=== PATIENT | female | born 1975 | race Caucasian/White ===

== ENCOUNTER 2016-09-28 07:59 | Emergency (ER) | payer OTHER ==
--- NOTE | 2016-09-28 09:17 | ED NURSING NOTES ---
Clinical Report - Nurses [facility] [address] [place] [address] 09/28/2016 8:01 Patient: MACIEJ BARNES TRIAGE Triage time 08:12 Sep 28 2016. Acuity: LEVEL 4. Chief Complaint: LEFT UPPER EXTREMITY PAIN. Alert. No acute distress. LEANNE COMA SCORE: Leanne Coma Scale: 15- eyes open spontaneously (4); best verbal response- oriented x 4 (5); best motor response- obeys commands (6). --08:19 Tammy Hernandez R.N. 08:12 09/28/16. BP: 116/62. HR: 65. RR: 18. O2 saturation: 99%. Temp: 98.2 F. Pain level now 0/10. --08:19 Tammy Hernandez R.N. Weight: 81.6 kg stated. Height/Length: 67 inches Per Patient. BMI: 28.2. --08:12 Tammy Hernandez R.N. Medications None. --08:13 Tammy Hernandez R.N. Medication/allergy information source: the patient. --08:19 Tammy Hernandez R.N. Allergies Ibuprofen. (sesative to it, sometimes face swells) --08:13 Tammy Hernandez R.N. The following entry was struck and corrected by Tammy Hernandez R.N., 08:14 (09/28/16) Reason for correction - other(correction). <<STRICKEN ENTRY-- Ibuprofen. --08:13 Tammy Hernandez R.N. --END STRIKE>>. History Arrived by private vehicle. Historian: patient. Accompanied by family. Primary physician (none). ( Chronic Left Shoulder pain - 4-5 months. Has seen Walk In in the past and was told Tendonitis.). An injury may have occurred. This occurred (recurrent problem). Treatment SHIPYARD PAINTER: None. PAST MEDICAL HX: Tetanus status: unknown. Has not received seasonal influenza immunization. SURGERY HX: ( Gastric Sleeve by Dr. Cintia Goode). SOCIAL HX: Never smoker. Occasional alcohol use. No drug use. No infectious disease exposure. FALL RISK ASSESSMENT: Fall risk assessment completed. No fall risk identified. NUTRITIONAL RISK ASSESSMENT: The nutritional risk assessment revealed no deficiencies. FUNCTIONAL ASSESSMENT: Functional assessment: no impairments noted. LEARNING NEEDS ASSESSMENT: The learning needs assessment revealed no barriers. SKIN INTEGRITY ASSESSMENT: Skin integrity risk assessment completed. No skin integrity risk identified. --08:19 Tammy Hernandez R.N. PROBLEMS: Neuropathy. Immunizations. LNMP - Last Normal Menstrual Period. Hypercholesterolemia. --08:13 Tammy Hernandez R.N. Interventions ID band on patient. To room. --08:19 Tammy Hernandez R.N. PHYSICAL ASSESSMENT 09:30 FIRST CONTACT WITH PT. --09:37 Umm Saavedra R.N. 09:30. GENERAL / NEURO / PSYCH: Oriented X 4. Alert. Appears in no acute distress. SKIN: Skin is warm and dry. --09:37 Umm Saavedra R.N. NURSING PROGRESS NOTES Patient ready for evaluation- ED physician notified. --08:19 Tammy Hernandez R.N. 09:30. The patient is calm. Overall patient status is the same- she states feels the same (pt refused the sling). GENERAL / NEURO / PSYCH: Alert. Oriented X 4. RESPIRATORY: No respiratory distress. SKIN: Skin is warm and dry. --09:36 Umm Saavedra R.N. DISPOSITION / DISCHARGE Departure time: 929. Condition at departure: unchanged and stable. No learning barriers present. Discharge instructions provided and reviewed with the patient. Reviewed medication(s). Prescription(s) given to the patient. Patient verbalized understanding. Written instructions provided in Cape Verdean. The patient was discharged home and accompanied by apron cleaner. She left the Emergency Department ambulatory and via private vehicle. FALL RISK ASSESSMENT: Fall risk assessment completed. No fall risk identified. --09:38 Umm Saavedra R.N. 09:30 09/28/16. BP: 118/60. HR: 72. RR: 18. O2 saturation: 100% on room air. Pain level now: 11/30. --09:38 Umm Saavedra R.N. Locked/Released at 09/28/2016 9:39 by Umm Saavedra R.N.
--- NOTE | 2016-09-28 09:17 | ED CLINICAL REPORT ---
Clinical Report - Physicians/Mid Levels [facility] [address] [place] [address] 09/28/2016 8:01 [id number] Time Seen: 08:37 Sep 28 2016. Arrived- By private vehicle. Historian- patient. CPT: ER phys charges level 3 (#883241). HISTORY OF PRESENT ILLNESS Chief Complaint: Injury to left shoulder. 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 ( no known injury. Progressively worse recently to the point of not being able to sleep. Guarding arm due to finger injury started to cause shoulder pain.). Patient is experiencing moderate pain. No other injury. REVIEW OF SYSTEMS No swelling, tingling, numbness, weakness or suspected foreign body. No skin laceration. All systems otherwise negative, except as recorded above. PAST HISTORY Fractured left small finger with several weeks of splinting. Neuropathy. Immunizations. LNMP - Last Normal Menstrual Period. Hypercholesterolemia. Medications: None. Allergies: Ibuprofen. (sesative to it, sometimes face swells). SOCIAL HISTORY Never smoker. Occasional alcohol use. No drug use. ADDITIONAL NOTES The nursing notes have been reviewed. PHYSICAL EXAM Vital Signs: 09/28/2016 08:12 BP: 116/62. HR: 65. RR: 18. O2 saturation: 99%. Temp: 98.2 F. Head: Head atraumatic. Eyes: Pupils equal, round and reactive to light. Eyes normal inspection. ENT: Ears normal. Pharynx normal. Neck: Normal inspection. Neck supple. C-spine non-tender. CVS: Normal heart rate and rhythm. Respiratory: No respiratory distress. Abdomen: Nontender. Back: Normal inspection. No tenderness. Skin: Skin intact. Skin warm. Normal skin color. Extremities: Moderate soft-tissue tenderness present over the left scapula. Left shoulder. Limited ROM due to pain (diminished extension and internal rotation). Neurovascular intact distally. Neuro, Vascular and Tendons: Sensation intact. Motor intact. Vascular status intact. Tendon function intact. Tendon visualized, uninjured. Neuro: Oriented X 3. No motor deficit. No sensory deficit. LABS, X-RAYS, AND EKG X-Rays: Left shoulder negative. PROGRESS AND PROCEDURES Patient/family counseled. Disposition: Discharged. Condition: stable. CLINICAL IMPRESSION Chronic pain left shoulder girdle. INSTRUCTIONS Apply moist heat for 15-20 minutes three times a day for five days until better. Limit use of your left hand until better. Warnings: GENERAL WARNINGS: Return or contact your physician immediately if your condition worsens or changes unexpectedly, if not improving as expected, or if other problems arise. Prescription Medications: Hydrocodone/APAP 5mg/325mg: take 1 to 2 orally every 6 hours as needed for pain. Dispense fifteen (15). No refills. Naproxen 500 mg tablets: take 1 orally every 12 hours as needed for pain. Dispense twenty (20). No refills. Soma 350 mg: Take 1 orally every 6 hours as needed for muscle spasm. Dispense twenty (20). No refills. Substitution is permissible. Follow-up: Follow up with an orthopedic surgeon in one week. Call for an appointment. Understanding of the discharge instructions verbalized by patient and family. Discharge instructions reviewed with and understanding was verbalized by spouse. [facility] [address] [facility] [address] Follow up in one week. Call for an appointment. (Electronically signed by Freddy Mendez MD 10/01/2016 12:33)
--- NOTE | 2016-09-28 09:17 | ED NURSING NOTES ---
Clinical Report - Nurses [facility] [address] [place] [address] 09/28/2016 8:01 Patient: MACIEJ BARNES TRIAGE Triage time 08:12 Sep 28 2016. Acuity: LEVEL 4. Chief Complaint: LEFT UPPER EXTREMITY PAIN. Alert. No acute distress. LEANNE COMA SCORE: Leanne Coma Scale: 15- eyes open spontaneously (4); best verbal response- oriented x 4 (5); best motor response- obeys commands (6). --08:19 Tammy Hernandez R.N. 08:12 09/28/16. BP: 116/62. HR: 65. RR: 18. O2 saturation: 99%. Temp: 98.2 F. Pain level now 0/10. --08:19 Tammy Hernandez R.N. Weight: 81.6 kg stated. Height/Length: 67 inches Per Patient. BMI: 28.2. --08:12 Tammy Hernandez R.N. Medications None. --08:13 Tammy Hernandez R.N. Medication/allergy information source: the patient. --08:19 Tammy Hernandez R.N. Allergies Ibuprofen. (sesative to it, sometimes face swells) --08:13 Tammy Hernandez R.N. The following entry was struck and corrected by Tammy Hernandez R.N., 08:14 (09/28/16) Reason for correction - other(correction). <<STRICKEN ENTRY-- Ibuprofen. --08:13 Tammy Hernandez R.N. --END STRIKE>>. History Arrived by private vehicle. Historian: patient. Accompanied by family. Primary physician (none). ( Chronic Left Shoulder pain - 4-5 months. Has seen Walk In in the past and was told Tendonitis.). An injury may have occurred. This occurred (recurrent problem). Treatment PROSTHETIC AIDE: None. PAST MEDICAL HX: Tetanus status: unknown. Has not received seasonal influenza immunization. SURGERY HX: ( Gastric Sleeve by Dr. Cintia Goode). SOCIAL HX: Never smoker. Occasional alcohol use. No drug use. No infectious disease exposure. FALL RISK ASSESSMENT: Fall risk assessment completed. No fall risk identified. NUTRITIONAL RISK ASSESSMENT: The nutritional risk assessment revealed no deficiencies. FUNCTIONAL ASSESSMENT: Functional assessment: no impairments noted. LEARNING NEEDS ASSESSMENT: The learning needs assessment revealed no barriers. SKIN INTEGRITY ASSESSMENT: Skin integrity risk assessment completed. No skin integrity risk identified. --08:19 Tammy Hernandez R.N. PROBLEMS: Neuropathy. Immunizations. LNMP - Last Normal Menstrual Period. Hypercholesterolemia. --08:13 Tammy Hernandez R.N. Interventions ID band on patient. To room. --08:19 Tammy Hernandez R.N. PHYSICAL ASSESSMENT 09:30 FIRST CONTACT WITH PT. --09:37 Umm Saavedra R.N. 09:30. GENERAL / NEURO / PSYCH: Oriented X 4. Alert. Appears in no acute distress. SKIN: Skin is warm and dry. --09:37 Umm Saavedra R.N. NURSING PROGRESS NOTES Patient ready for evaluation- ED physician notified. --08:19 Tammy Hernandez R.N. 09:30. The patient is calm. Overall patient status is the same- she states feels the same (pt refused the sling). GENERAL / NEURO / PSYCH: Alert. Oriented X 4. RESPIRATORY: No respiratory distress. SKIN: Skin is warm and dry. --09:36 Umm Saavedra R.N. DISPOSITION / DISCHARGE Departure time: 929. Condition at departure: unchanged and stable. No learning barriers present. Discharge instructions provided and reviewed with the patient. Reviewed medication(s). Prescription(s) given to the patient. Patient verbalized understanding. Written instructions provided in Martiniquais. The patient was discharged home and accompanied by restoration technician. She left the Emergency Department ambulatory and via private vehicle. FALL RISK ASSESSMENT: Fall risk assessment completed. No fall risk identified. --09:38 Umm Saavedra R.N. 09:30 09/28/16. BP: 118/60. HR: 72. RR: 18. O2 saturation: 100% on room air. Pain level now: 11/30. --09:38 Umm Saavedra R.N. Locked/Released at 09/28/2016 9:39 by Umm Saavedra R.N.
--- NOTE | 2016-09-28 09:17 | ED CLINICAL REPORT ---
Clinical Report - Physicians/Mid Levels [facility] [address] [place] [address] 09/28/2016 8:01 [id number] Time Seen: 08:37 Sep 28 2016. Arrived- By private vehicle. Historian- patient. CPT: ER phys charges level 3 (#[id number]). HISTORY OF PRESENT ILLNESS Chief Complaint: Injury to left shoulder. 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 ( no known injury. Progressively worse recently to the point of not being able to sleep. Guarding arm due to finger injury started to cause shoulder pain.). Patient is experiencing moderate pain. No other injury. REVIEW OF SYSTEMS No swelling, tingling, numbness, weakness or suspected foreign body. No skin laceration. All systems otherwise negative, except as recorded above. PAST HISTORY Fractured left small finger with several weeks of splinting. Neuropathy. Immunizations. LNMP - Last Normal Menstrual Period. Hypercholesterolemia. Medications: None. Allergies: Ibuprofen. (sesative to it, sometimes face swells). SOCIAL HISTORY Never smoker. Occasional alcohol use. No drug use. ADDITIONAL NOTES The nursing notes have been reviewed. PHYSICAL EXAM Vital Signs: 09/28/2016 08:12 BP: 116/62. HR: 65. RR: 18. O2 saturation: 99%. Temp: 98.2 F. Head: Head atraumatic. Eyes: Pupils equal, round and reactive to light. Eyes normal inspection. ENT: Ears normal. Pharynx normal. Neck: Normal inspection. Neck supple. C-spine non-tender. CVS: Normal heart rate and rhythm. Respiratory: No respiratory distress. Abdomen: Nontender. Back: Normal inspection. No tenderness. Skin: Skin intact. Skin warm. Normal skin color. Extremities: Moderate soft-tissue tenderness present over the left scapula. Left shoulder. Limited ROM due to pain (diminished extension and internal rotation). Neurovascular intact distally. Neuro, Vascular and Tendons: Sensation intact. Motor intact. Vascular status intact. Tendon function intact. Tendon visualized, uninjured. Neuro: Oriented X 3. No motor deficit. No sensory deficit. LABS, X-RAYS, AND EKG X-Rays: Left shoulder negative. PROGRESS AND PROCEDURES Patient/family counseled. Disposition: Discharged. Condition: stable. CLINICAL IMPRESSION Chronic pain left shoulder girdle. INSTRUCTIONS Apply moist heat for 15-20 minutes three times a day for five days until better. Limit use of your left hand until better. Warnings: GENERAL WARNINGS: Return or contact your physician immediately if your condition worsens or changes unexpectedly, if not improving as expected, or if other problems arise. Prescription Medications: Hydrocodone/APAP 5mg/325mg: take 1 to 2 orally every 6 hours as needed for pain. Dispense fifteen (15). No refills. Naproxen 500 mg tablets: take 1 orally every 12 hours as needed for pain. Dispense twenty (20). No refills. Soma 350 mg: Take 1 orally every 6 hours as needed for muscle spasm. Dispense twenty (20). No refills. Substitution is permissible. Follow-up: Follow up with an orthopedic surgeon in one week. Call for an appointment. Understanding of the discharge instructions verbalized by patient and family. Discharge instructions reviewed with and understanding was verbalized by spouse. [facility], , [address] [facility] [address] Follow up in one week. Call for an appointment. (Electronically signed by Freddy Mendez MD 10/01/2016 12:33)
--- NOTE | 2016-09-28 09:17 | ED ORDER SUMMARY ---
..... Patient: MACIEJ BARNES OrderSheet [facility] VisitID: [id number] [address] [place] [address] 40y, F Registration Date/Time: 09/28/2016 ORDER SHEET Weight: 81.6 kg (stated) Allergies: Ibuprofen GENERAL ORDERS: Shoulder 2V or more Left Urgent (08:50 09/28/2016 Mekhi ARCEO) (Ack 8:58 LNations ER Tech1) (9:24 Duglas Cason) Sling - arm (09:17 09/28/2016 Mekhi ARCEO) (Cancelled: Patient Refusal9:38 Robinson Cason) MEDICATION ORDERS: IV FLUIDS: ORDER SHEET NOTES: [Electronically signed by Umm Saavedra R.N. (09:39 09/28/2016)] [Electronically signed by Freddy Mendez MD (12:33 10/01/2016)] [Electronically locked/signed by Umm Saavedra R.N. (09:39 09/28/2016)]
--- NOTE | 2016-09-28 09:17 | ED ORDER SUMMARY ---
..... Patient: MACIEJ BARNES OrderSheet [facility] VisitID: [id number] [address] [place] [address] 40y, F Registration Date/Time: 09/28/2016 ORDER SHEET Weight: 81.6 kg (stated) Allergies: Ibuprofen GENERAL ORDERS: Shoulder 2V or more Left Urgent (08:50 09/28/2016 Mekhi ARCEO) (Ack 8:58 LNations ER Tech1) (9:24 Duglas Cason) Sling - arm (09:17 09/28/2016 Mekhi ARCEO) (Cancelled: Patient Refusal9:38 Robinson Cason) MEDICATION ORDERS: IV FLUIDS: ORDER SHEET NOTES: [Electronically signed by Umm Saavedra R.N. (09:39 09/28/2016)] [Electronically signed by Freddy Mendez MD (12:33 10/01/2016)] [Electronically locked/signed by Umm Saavedra R.N. (09:39 09/28/2016)]
--- NOTE | 2016-09-28 09:21 | DIAGNOSTIC IMAGING REPORT ---
PROCEDURE: XR SHOULDER 2 OR MORE VW-LEFT INDICATION: PAIN TECHNIQUE: Three views. COMPARISON: None. FINDINGS: Mild AC joint degenerative change. Normal glenohumeral joint. No fracture or dislocation. No soft tissue calcifications. IMPRESSION: 1. Mild left AC joint degenerative changes.
--- NOTE | 2016-10-01 12:34 | ED MAR SUMMARY ---
..... Medication Administration Record [facility] [address], [place] [id number] Patient: MACIEJ BARNES Visit ID: [id number] 40y, F Weight: 81.6 kg Height/Length: 67 in BMI: 28.2 ALLERGIES: Ibuprofen
--- NOTE | 2016-10-01 12:34 | ED MED RECONCILIATION SUMMARY ---
Patient: MACIEJ BARNES Medication Reconciliation Report [facility] VisitID: [id number] [address] [place] [address] 40y, F Registration Date/Time: 09/28/2016 Weight: 81.6 kg Height/Length: 67 in. BMI: 28.2 ALLERGIES: Ibuprofen The patient's Home Medications are listed below: NONE. The source(s) of the original Home Medication information: patient The following Medications were given to the patient in the Emergency Department: None. The following Medications were prescribed to the patient: Hydrocodone/APAP 5mg/325mg: take 1 to 2 orally every 6 hours as needed for pain. Dispense fifteen (15). No refills. -- Freddy Mendez MD Naproxen 500 mg tablets: take 1 orally every 12 hours as needed for pain. Dispense twenty (20). No refills. -- Freddy Mendez MD Soma 350 mg: Take 1 orally every 6 hours as needed for muscle spasm. Dispense twenty (20). No refills. Substitution is permissible. -- Freddy Mendez MD
--- NOTE | 2016-10-01 12:34 | ED DISCHARGE INSTRUCTIONS ---
Patient: MACIEJ BARNES General Instructions [facility] VisitID: [id number] [address] [place] [address] 40y, F Registration Date/Time: 09/28/2016 Chronic pain left shoulder girdle. INSTRUCTIONS Apply moist heat for 15-20 minutes three times a day for five days until better. Limit use of your left hand until better. Warnings: GENERAL WARNINGS: Return or contact your physician immediately if your condition worsens or changes unexpectedly, if not improving as expected, or if other problems arise. Prescription Medications: Hydrocodone/APAP 5mg/325mg: take 1 to 2 orally every 6 hours as needed for pain. Dispense fifteen (15). No refills. Naproxen 500 mg tablets: take 1 orally every 12 hours as needed for pain. Dispense twenty (20). No refills. Soma 350 mg: Take 1 orally every 6 hours as needed for muscle spasm. Dispense twenty (20). No refills. Substitution is permissible. Follow-up: Follow up with an orthopedic surgeon in one week. Call for an appointment. Understanding of the discharge instructions verbalized by patient and family. Discharge instructions reviewed with and understanding was verbalized by spouse. [facility] with: [facility], , [address] [place], [address] Follow up in one week. Call for an appointment. Limit use of your left hand until better. (Electronically signed by Freddy Mendez MD 10/01/2016 12:33)
--- NOTE | 2016-10-01 12:34 | ED MAR SUMMARY ---
..... Medication Administration Record [facility] [address], [place] [id number] Patient: MACIEJ BARNES Visit ID: [id number] 40y, F Weight: 81.6 kg Height/Length: 67 in BMI: 28.2 ALLERGIES: Ibuprofen
--- NOTE | 2016-10-01 12:34 | ED DISCHARGE INSTRUCTIONS ---
Patient: MACIEJ BARNES General Instructions [facility] VisitID: [id number] [address] [place] [address] 40y, F Registration Date/Time: 09/28/2016 Chronic pain left shoulder girdle. INSTRUCTIONS Apply moist heat for 15-20 minutes three times a day for five days until better. Limit use of your left hand until better. Warnings: GENERAL WARNINGS: Return or contact your physician immediately if your condition worsens or changes unexpectedly, if not improving as expected, or if other problems arise. Prescription Medications: Hydrocodone/APAP 5mg/325mg: take 1 to 2 orally every 6 hours as needed for pain. Dispense fifteen (15). No refills. Naproxen 500 mg tablets: take 1 orally every 12 hours as needed for pain. Dispense twenty (20). No refills. Soma 350 mg: Take 1 orally every 6 hours as needed for muscle spasm. Dispense twenty (20). No refills. Substitution is permissible. Follow-up: Follow up with an orthopedic surgeon in one week. Call for an appointment. Understanding of the discharge instructions verbalized by patient and family. Discharge instructions reviewed with and understanding was verbalized by spouse. Follow[facility] with: [facility], , [address] [place], [address] Follow up in one week. Call for an appointment. Limit use of your left hand until better. (Electronically signed by Freddy Mendez MD 10/01/2016 12:33)
--- NOTE | 2016-10-01 12:34 | ED MED RECONCILIATION SUMMARY ---
Patient: MACIEJ BARNES Medication Reconciliation Report [facility] VisitID: [id number] [address] [place] [address] 40y, F Registration Date/Time: 09/28/2016 Weight: 81.6 kg Height/Length: 67 in. BMI: 28.2 ALLERGIES: Ibuprofen The patient's Home Medications are listed below: NONE. The source(s) of the original Home Medication information: patient The following Medications were given to the patient in the Emergency Department: None. The following Medications were prescribed to the patient: Hydrocodone/APAP 5mg/325mg: take 1 to 2 orally every 6 hours as needed for pain. Dispense fifteen (15). No refills. -- Freddy Mendez MD Naproxen 500 mg tablets: take 1 orally every 12 hours as needed for pain. Dispense twenty (20). No refills. -- Freddy Mendez MD Soma 350 mg: Take 1 orally every 6 hours as needed for muscle spasm. Dispense twenty (20). No refills. Substitution is permissible. -- Freddy Mendez MD
== END 2016-09-28 09:30 | disposition home or self-care (01) ==
LOC: ED SRH 07:59
DX: G89.21 Chronic pain due to trauma (principal); M25.512 Pain in left shoulder; Y92.009 Unspecified place in unspecified non-institutional (private) residence as the place of occurrence of the external cause; X58.XXXA Exposure to other specified factors, initial encounter; Y99.9 Unspecified external cause status; Y93.9 Activity, unspecified; Z88.6 Allergy status to analgesic agent

== ENCOUNTER 2016-09-28 09:40 | Outpatient (CLI) | payer OTHER | END 2016-09-28 23:00 | LOC: LAB SRH 09:40 | DX: K21.9 Gastro-esophageal reflux disease without esophagitis (principal); M54.9 Dorsalgia, unspecified; E78.5 Hyperlipidemia, unspecified; K91.2 Postsurgical malabsorption, not elsewhere classified | CPT/HCPCS: 90032; 90074; 90100; 90233; 90251; 91096; 91282; 91504; 91505; 92668; 92670; 92690; 93140; 95059 ==